=== PATIENT | female | born 1995 | race Caucasian/White ===

== ENCOUNTER 2022-10-31 15:28 | Outpatient (AMB) | payer OTHER, SELFPAY ==
--- NOTE | 2022-10-31 15:37 | A.OFFPC_ITS ---
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 Accompanied by: Self / Same As Patient Allergies No Known Allergies [No Known Allergies*] Allergy (Verified 10/31/22 15:47) Medication List - Last Reconciled 10/31/22 by MARGARET Romeo dextroamphetamine-amphetamine 10 mg ER (Adderall XR) 10 mg PO DAILY dextroamphetamine-amphetamine 25 mg ER 1 cap PO DAILY 30 days simvastatin 10 mg PO BEDTIME 90 days Tobacco use date assessed: 10/31/22 Dental Screening Dental Screen Date: 10/31/22 Did you have a dental visit in the last 12 months?: No Did you have a dental problem in the last 6 months where you did not have access to dental care?: No Was dental information given to patient?: Patient has dentist HPI Med review HPI Details Patient is a 26-year-old female presents today for medications refills. Patient of Dr. Gee, last office visit 12/2021. Medical history significant for ADHD, hypercholesterolemia, obesity. Patient reports healthy food choices and exercise as tolerated. She reports fatigue for the past 1 year, she was encouraged to complete her blood work. No shortness of breath or chest pain. Reports ADHD stable with Adderall 25 mg in the morning and 10 mg in the afternoon, she reports being on Adderall for many years now which helping her - denies side effects. [facility] Medical History ADHD Hypercholesterolemia Surgical History No pertinent past surgical history Family History Father Myocardial infarction Mother No problems noted. Maternal Grandmother Lung cancer Maternal Grandmother Melanoma Skin cancer Sister Chest pain Family/Other Diabetes Heart disease Paternal Grandmother Myocardial infarction Maternal Uncle Schizophrenia Social History Housing: Other Alcohol intake: current Alcohol intake frequency: a few times a week Patient Tobacco Use Status: Never used Tobacco e-Cigarette/Vaping Use: Never Used Second Hand Smoke Exposure: No Current occupational status: employed Cognitive needs: No Hearing needs: No Vision needs: No Questionnaire PHQ-9 Over the last 2 weeks, how often have you been bothered by any of the following problems? 1. Little interest or pleasure in doing things: several days 2. Feeling down, depressed, or hopeless: several days 3. Trouble falling or staying asleep, or sleeping too much: not at all 4. Feeling tired or having little energy: not at all 5. Poor appetite or overeating: not at all 6. Feeling bad about yourself - or that you are a failure or have let yourself or your family down: not at all 7. Trouble concentrating on things, such as reading the newspaper or watching television: not at all 8. Moving or speaking so slowly that other people could have noticed. Or the opposite - being so fidgety or restless that you have been moving around a lot more than usual: not at all 9. Thoughts that you would be better off or of hurting yourself in some way: not at all Total score: 2 Depression Screening Interpretation: Negative 16533 - PHQ-9 Billing: Yes Source: Developed by Drs. David Dowd, Becca Schaefer, Tom Steel and colleagues, with an educational martin from [employer]. Thrive Questionnaire Date Thrive assessed: 10/31/22 I am a: Patient What is your living situation today?: I have a steady place to live Within the past 12 months, did the food you bought not last and you didn't have the money to get more?: Never true Within the past 12 months, did you worry whether your food would run out before you got money to buy more?: Never true Do you have trouble paying for medicines?: No Do you have trouble getting transportation to medical appointments?: No Do you have trouble paying your heating and electricity bill?: No Do you have trouble taking care of your child, family member or friend?: No Do you have trouble with day-to-day activities such as bathing, preparing meals, shopping, managing finances, etc.?: No Are you currently unemployed and looking for a job?: No Are you interested in more education?: No Please select the resources that you would like help with: None Currently or been in a relationship where the following occur: no concerns reported AUDIT C Alcohol Use Questionnaire (AUDIT-C) 1. How often do you have a drink containing alcohol?: 2-3 times a week 2. How many drinks containing alcohol do you have on a typical day when you are drinking?: 1 or 2 Total Score: 3 Score Reviewed/Action Taken: No MICHAEL-7 AMB Questionnaire MICHAEL-7 Date MICHAEL - 7 assessed: 10/31/22 Feeling nervous, anxious, or on edge: 1 = Several days Not being able to stop or control worryin = Several days Worrying too much about different things: 1 = Several days Trouble relaxin = Several days Being so restless that it is hard to sit still: 1 = Several days Becoming easily annoyed or irritable: 1 = Several days Feeling afraid as if something awful might happen: 1 = Several days Total MICHAEL-7 score (0-4 normal; 5-9 mild; 10-14 moderate; 15-21 severe): 7 Source: Developed by Drs. David Dowd, Becca Schaefer, Tom Steel and colleagues, with an educational martin from [employer]. MICHAEL-7 Assessment Billing MICHAEL-7 Assessment Tool: MICHAEL-7 Assessment 21115 Review of Systems Const Denies body aches, Denies chills, Reports fatigue, Denies fever(s) and Denies headache(s) Eyes Denies change in vision ENT Denies dizziness, Denies otalgia, Denies headache(s), Denies nasal discharge, Denies sinus pain and Denies sore throat Card Denies chest pain, Denies edema, Denies lightheadedness and Denies dyspnea Resp Denies cough and Denies dyspnea GI Denies constipation, Denies diarrhea, Denies nausea and Denies vomiting Denies dysuria Musc Denies myalgias Skin/Breast Denies rash Neuro Denies dizziness and Denies headache(s) Endo Reports fatigue Physical exam (Primary Care) Vital Signs: Last Vital Signs Pulse 93 10/31/22 15:38 BP 122/80 10/31/22 15:38 Pulse Ox 97 10/31/22 15:38 Oxygen Delivery Method Room Air 10/31/22 15:38 BMI result Body Mass Index 35.8 Tobacco/Smoking Status: Tobacco use Status Tobacco use date assessed 10/31/22 10/31/22 15:43 Patient Tobacco Use Status Never used Tobacco 10/31/22 15:43 e-Cigarette/Vaping Use Never Used 10/31/22 15:43 PHQ-9: PHQ-9 Score PHQ-9: Total score 2 10/31/22 15:49 Depression Screening Interpretation: Negative Thrive Assessment: Date of Thrive Assessment Date Thrive assessed 10/31/22 10/31/22 15:43 Currently or been in a relationship where the following occur: no concerns reported Const General: cooperative and no acute distress Orientation/consciousness: patient oriented x3 HENMT Head: Yes normocephalic and Yes atraumatic Mouth: oropharynx normal and moist mucous membranes Throat: Yes posterior oropharynx normal Eyes General: appearance normal, both eyes and all related structures Pupils: Equal, round and reactive pupils present Neck Neck: Yes normal visual inspection, Yes full ROM and Yes no lymphadenopathy Resp Effort & Inspection: normal respiratory effort and able to speak in complete sentences Auscultation: clear to auscultation bilaterally, no crackles, no rales, no rhonchi and no wheezes Cardio Rate: regular rate Rhythm: regular rhythm Heart sounds: S1 normal heart sound present and S2 normal heart sound present GI Auscultation: normal bowel sounds Skin General skin exam: no rashes or lesions noted Neuro General: patient oriented x3 Cranial nerves: Yes Equal, round and reactive pupils present Gait exam (Neuro): Normal gait present Extrem General: Yes full ROM and No edema Assessment and Plan Assessment & Plan (1) Hypercholesterolemia: Code(s): E78.00 - Pure hypercholesterolemia, unspecified Plan: Patient was encouraged to complete her blood work Continue simvastatin Low-cholesterol diet and weight loss (2) ADHD: Comment: 20 min reviewing chart evaluating patient and documenting Code(s): F90.9 - Attention-deficit hyperactivity disorder, unspecified type Plan: Stable with Adderall, Rx sent - patient was educated about possible adverse effects and when to notify provider (3) Obesity (BMI 30-39.9): Code(s): E66.9 - Obesity, unspecified Plan: Healthy food choices and exercise as tolerated Plan Patient was encouraged to complete her blood work Orders: Orders Complete Blood Count Auto Diff Today F90.9 - Attention-deficit hyperactivity disorder, unspecified type Vitamin D 25-OH Total Today F90.9 - Attention-deficit hyperactivity disorder, unspecified type Medications: Refilled simvastatin 10 mg PO BEDTIME 90 days 90 tabs 2RF E78.00 - Pure hypercholesterolemia, unspecified dextroamphetamine-amphetamine 25 mg ER 1 cap PO DAILY 30 days 30 caps 0RF F90.9 - Attention-deficit hyperactivity disorder, unspecified type dextroamphetamine-amphetamine 10 mg ER (Adderall XR) 10 mg PO DAILY 30 caps 0RF F90.9 - Attention-deficit hyperactivity disorder, unspecified type dextroamphetamine-amphetamine 25 mg ER 1 cap PO DAILY 30 days 30 caps 0RF F90.9 - Attention-deficit hyperactivity disorder, unspecified type Coding Level of Care Code Est Pt Level 4 (82829) Diagnoses Hypercholesterolemia E78.00 ADHD F90.9 Obesity (BMI 30-39.9) E66.9 Additional Codes MICHAEL-7 Assessment Billing - MICHAEL-7 Assessment Tool: MICHAEL-7 Assessment 84314 ([id number])
[2022-10-31 15:38] VITALS: BP 122/80; PULSE 93; O2SAT 97; BMI 35.8
== END 2022-10-31 17:42 | disposition home or self-care (01) ==
PROVIDERS: PCP Internal Medicine; Visit Provider Nurse Practitioner Family
DX: E78.00 Pure hypercholesterolemia, unspecified (principal); F90.9 Attention-deficit hyperactivity disorder, unspecified type; E66.9 Obesity, unspecified; Z68.35 Body mass index [BMI] 35.0-35.9, adult
CPT/HCPCS: 99214

== ENCOUNTER 2023-02-28 10:28 | Outpatient (REF) | payer OTHER, SELFPAY ==
[2023-02-28 10:53] LABS: MANUAL DIFF FLAG NO
[2023-02-28 11:45] LABS: Estimated Average Glucose 120 mg/dL; Hemoglobin A1c % 5.8 % (<6.0)
[2023-02-28 11:48] LABS: Basophils Percent Auto 0.4 % (0-2); Eosinophils Absolute Auto 0.2 X10*3/uL (0.0-0.4); Eosinophils Percent Auto 2.3 % (0-4); Hematocrit 41.2 % (37.0-47.0); Imm Gran Abs Auto 0.05 X10*3/uL (0.00-0.03); Imm Gran Pct Auto 0.6 % (0.0-0.4); Lymphocytes Absolute Auto 1.9 X10*3/uL (1.2-4.9); Lymphocytes Percent Auto 22.6 % (20-40); Mean Corpuscular Volume 91.2 fL (80.0-98.0); Mean Platelet Volume 9.8 fL (9.4-12.3); Monocytes Absolute Auto 0.5 X10*3/uL (0.1-1.2); Monocytes Percent Auto 6.5 % (2-11); Neutrophils Absolute Auto 5.7 x10*3/uL (2.0-8.3); Neutrophils Percent Auto 67.6 % (45-73); Platelet Count 306 X10*3/uL (160-400); Red Blood Count 4.52 X10*6/uL (4.20-5.50); Red Cell Distribution Width 11.9 % (11.0-16.0); White Blood Count 8.4 X10*3/uL (4.8-10.8)
[2023-02-28 12:16] LABS: Glucose Fasting 91 mg/dL (60-99)
[2023-02-28 12:26] LABS: Vitamin D 25-OH Total 24.5 ng/mL (>30)
[2023-02-28 12:28] LABS: Alanine Aminotransferase 39 U/L (0-31); Albumin Level 4.5 g/dL (3.5-5.0); Alkaline Phosphatase 129 U/L (39-117); Anion Gap 13 (12-20); Aspartate Amino Transferase 29 U/L (5-31); Bilirubin Total 0.4 mg/dL (0.0-1.0); Blood Urea Nitrogen 13 mg/dL (9-16); Calcium 9.9 mg/dL (8.4-10.2); Carbon Dioxide 22 mmol/L (22-29); Chloride 107 mmol/L (96-108); Cholesterol 258 mg/dL (<200); Estimated Glomerular Filt Rate > 60; Glucose Random 93 mg/dL (60-115); HDL Cholesterol 42 mg/dL (>40); Insulin 13 uU/mL (2-29); LDL Cholesterol Calculated 169 mg/dL (<100); Potassium 4.1 mmol/L (3.3-5.1); Sodium 138 mmol/L (135-145); TSH reflex Free T4 2.12 uIU/mL (0.32-4.0); Total Protein 7.6 g/dL (6.5-8.0); Triglycerides 238 mg/dL (<150)
[2023-02-28 12:31] LABS: Free T4 (Free Thyroxine) 0.99 ng/dL (0.71-1.85)
[2023-03-01 06:44] LABS: DHEA Sulfate 326 mcg/dL (14-349); Follicle Stimulating Hormone 6.4 mIU/mL
[2023-03-04 23:29] LABS: Testosterone, Free 7.5 pg/mL (0.1-6.4); Testosterone, Total 47 ng/dL (2-45)
[2023-03-05 22:19] LABS: Estradiol Ultra Sensitive 37 pg/mL
== END 2023-02-28 10:29 | disposition home or self-care (01) ==
LOC: HO.LAB 10:28
PROVIDERS: Nurse Practitioner Family; PCP Internal Medicine; Referring Provider Internal Medicine; Visit Provider Obstetrics & Gynecology
DX: E78.00 Pure hypercholesterolemia, unspecified (principal); F90.9 Attention-deficit hyperactivity disorder, unspecified type; N97.9 Female infertility, unspecified
CPT/HCPCS: 36415; 80053; 80061; 82306; 82627; 82670; 82947; 83001; 83036; 83525; 84146; 84402; 84403; 84439; 84443; 85025

== ENCOUNTER 2023-05-02 13:10 | Outpatient (AMB) | payer OTHER, SELFPAY ==
[2023-05-02 13:14] VITALS: BP 142/96; PULSE 94; O2SAT 97; BMI 35.8
--- NOTE | 2023-05-02 13:14 | A.OFFPC_ITS ---
Vital Signs 05/02/23 13:14 Height 5 ft 2.5 in Weight 199 lb 2 oz BMI 35.8 BP 142/96 H Blood Pressure Location Lt brachial Position Sitting Pulse 94 Pulse Source Pulse Oximeter Pulse Oximetry (%) 97 Oxygen Delivery Method Room Air Intake Visit Reasons: Annual PE Intake Note: Patient is here today for a physical. 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 Accompanied by: Self / Same As Patient Allergies No Known Allergies [No Known Allergies*] Allergy (Verified 05/02/23 13:15) Medication List - Last Reconciled 05/02/23 by Diallo Gee MD cholecalciferol (vitamin D3) 25 mcg PO DAILY dextroamphetamine-amphetamine 10 mg ER (Adderall XR) 10 mg PO DAILY multivitamin 1 tab PO DAILY Tobacco use date assessed: 05/02/23 Dental Screening Dental Screen Date: 05/02/23 Did you have a dental visit in the last 12 months?: Yes Did you have a dental problem in the last 6 months where you did not have access to dental care?: No Was dental information given to patient?: Patient has dentist HPI Annual PE HPI Details 27-year-old obese female with a history of ADHD hypercholesterolemia last seen in 2021 coming in for physical exam. Review of the notes patient has seen the nurse practitioner in October 2022 for a med review patient has Adderall 25 mg in the morning and 10 mg in the afternoon. [facility] Medical History (Updated 05/02/23 @ 13:36 by Diallo Gee MD) GERD (gastroesophageal reflux disease) Obesity (BMI 30.0-34.9) Hypercholesterolemia ADHD Surgical History No pertinent past surgical history Family History (Updated 05/02/23 @ 13:28 by Diallo Gee MD) Father Myocardial infarction Mother No problems noted. Maternal Grandmother Lung cancer Maternal Grandmother Melanoma Skin cancer Sister Chest pain Family/Other Diabetes Heart disease Paternal Grandmother Myocardial infarction Maternal Uncle Schizophrenia Paternal Aunt Pericardial effusion Social History (Updated 05/02/23 @ 13:29 by Diallo Gee MD) Housing: Other Alcohol intake: current Alcohol intake frequency: a few times a week Comment: 2x a week 3-4 glasses of wine Patient Tobacco Use Status: Never used Tobacco e-Cigarette/Vaping Use: Never Used Second Hand Smoke Exposure: No Current occupational status: employed Cognitive needs: No Hearing needs: No Vision needs: No Questionnaire PHQ-9 Over the last 2 weeks, how often have you been bothered by any of the following problems? 1. Little interest or pleasure in doing things: not at all 2. Feeling down, depressed, or hopeless: not at all 3. Trouble falling or staying asleep, or sleeping too much: not at all 4. Feeling tired or having little energy: not at all 5. Poor appetite or overeating: not at all 6. Feeling bad about yourself - or that you are a failure or have let yourself or your family down: not at all 7. Trouble concentrating on things, such as reading the newspaper or watching television: not at all 8. Moving or speaking so slowly that other people could have noticed. Or the opposite - being so fidgety or restless that you have been moving around a lot more than usual: not at all 9. Thoughts that you would be better off or of hurting yourself in some way: not at all Total score: 0 Depression Screening Interpretation: Negative Depression Screening Done: Yes 98127 - PHQ-9 Billing: Yes Source: Developed by Drs. David Dowd, Becca Schaefer, Tom Steel and colleagues, with an educational martin from [employer]. Thrive Questionnaire Date Thrive assessed: 05/02/23 I am a: Patient What is your living situation today?: I have a steady place to live Within the past 12 months, did the food you bought not last and you didn't have the money to get more?: Never true Within the past 12 months, did you worry whether your food would run out before you got money to buy more?: Never true Do you have trouble paying for medicines?: No Do you have trouble getting transportation to medical appointments?: No Do you have trouble paying your heating and electricity bill?: No Do you have trouble taking care of your child, family member or friend?: No Do you have trouble with day-to-day activities such as bathing, preparing meals, shopping, managing finances, etc.?: No Are you currently unemployed and looking for a job?: No Are you interested in more education?: No Please select the resources that you would like help with: None Currently or been in a relationship where the following occur: no concerns reported THRIVE Score: 0 AUDIT C Alcohol Use Questionnaire (AUDIT-C) 1. How often do you have a drink containing alcohol?: 2-3 times a week 2. How many drinks containing alcohol do you have on a typical day when you are drinking?: 1 or 2 Total Score: 3 Score Reviewed/Action Taken: No MICHAEL-7 AMB Questionnaire MICHAEL-7 Date MICHAEL - 7 assessed: 05/02/23 Feeling nervous, anxious, or on edge: 0 = Not at all Not being able to stop or control worryin = Not at all Worrying too much about different things: 0 = Not at all Trouble relaxin = Not at all Being so restless that it is hard to sit still: 0 = Not at all Becoming easily annoyed or irritable: 0 = Not at all Feeling afraid as if something awful might happen: 0 = Not at all Total MICHAEL-7 score (0-4 normal; 5-9 mild; 10-14 moderate; 15-21 severe): 0 Source: Developed by Drs. David Dowd, Becca Schaefer, Tom Steel and colleagues, with an educational martin from [employer]. MICHAEL-7 Assessment Billing MICHAEL-7 Assessment Tool: MICHAEL-7 Assessment 80448 Review of Systems Const Denies poor appetite and Denies weakness Eyes Denies no additional complaints ENT Reports Normal hearing present, Denies dizziness, Denies nasal congestion, Denies tinnitus and Denies sore throat Card Denies chest pain, Denies syncope, Denies rapid heart rate and Denies dyspnea Resp Denies cough and Denies dyspnea GI Denies change in stool character, Reports constipation, Denies diarrhea, Denies nausea and Denies vomiting Denies urinary frequency, Denies difficulty voiding and Denies dysuria Neuro Reports Normal hearing present, Denies confusion, Denies dizziness, Denies syncope and Denies weakness Psych Denies confusion Physical exam (Primary Care) Vital Signs: Last Vital Signs Pulse 94 05/02/23 13:14 BP 142/96 H 05/02/23 13:14 Pulse Ox 97 05/02/23 13:14 Oxygen Delivery Method Room Air 05/02/23 13:14 BMI result Body Mass Index 35.8 Tobacco/Smoking Status: Tobacco use Status Tobacco use date assessed 05/02/23 05/02/23 13:17 Patient Tobacco Use Status Never used Tobacco 05/02/23 13:17 e-Cigarette/Vaping Use Never Used 05/02/23 13:17 Depression Screening Interpretation: Negative Thrive Assessment: Date of Thrive Assessment Date Thrive assessed 05/02/23 05/02/23 13:17 Currently or been in a relationship where the following occur: no concerns reported Const General: No confusion Orientation/consciousness: No confusion Neuro General: No confusion Cranial nerves: Yes Normal hearing present Assessment and Plan Assessment & Plan (1) Annual physical exam: Code(s): Z00.00 - Encounter for general adult medical examination without abnormal findings (2) Obesity (BMI 30-39.9): Code(s): E66.9 - Obesity, unspecified Plan: Diet and exercise (3) Hypercholesterolemia: Code(s): E78.00 - Pure hypercholesterolemia, unspecified Plan: Avoid fried foods, chicken skin, eggs, butter margarine, pastries and meat. Be it pork or beef they have a lot of cholesterol LDL goal of less than 130 and triglyceride of less than 150. Due to patient's desire for will hold off for any cholesterol medication (4) ADHD: Comment: 20 min reviewing chart evaluating patient and documenting Code(s): F90.9 - Attention-deficit hyperactivity disorder, unspecified type Plan: Presently continuing with medication for ADHD blood pressure controlled (5) Impaired glucose tolerance: Code(s): R73.02 - Impaired glucose tolerance (oral) Plan: Decrease the amount of carbohydrate intake, pasta, bread, rice and potatoes are all sugar and that is aside from all the sweet stuff, remember that fruits are good but they are Sweet also. (6) LFT elevation: Code(s): R79.89 - Other specified abnormal findings of blood chemistry Plan: Will request for ultrasound and repeat blood work for hepatitis profile (7) GERD (gastroesophageal reflux disease): Code(s): K21.9 - Gastro-esophageal reflux disease without esophagitis Plan: Avoid the foods that causes that usually spicy foods, tomato products, juices, coffee, soda and foods that your sensitive to. After eating do not lie down, allow 3-4 hours before in lie down. And keep the head of bed above 30 degrees to avoid the acid from going up. (8) Blood pressure elevated without history of HTN: Code(s): R03.0 - Elevated blood-pressure reading, without diagnosis of hypertension Plan: Advised to monitor blood pressure at home and record. Before taking the blood pressure sit down for about 3-5 minutes. Orders: Orders Hepatitis B,C Profile Today R79.89 - Other specified abnormal findings of blood chemistry Comprehensive Met. Panel Today R79.89 - Other specified abnormal findings of blood chemistry US abdomen complete Today R79.89 - Other specified abnormal findings of blood chemistry Coding Level of Care Code Est Pt Prev Care 18-39y(32152) Diagnoses Annual physical exam Z00.00 Obesity (BMI 30-39.9) E66.9 Hypercholesterolemia E78.00 ADHD F90.9 Impaired glucose tolerance R73.02 LFT elevation R79.89 GERD (gastroesophageal reflux disease) K21.9 Blood pressure elevated without history of HTN R03.0 Additional Codes MICHALE-7 Assessment Billing - MICHAEL-7 Assessment Tool: MICHAEL-7 Assessment [id number] ([id number])
== END 2023-05-02 13:45 | disposition home or self-care (01) ==
PROVIDERS: PCP Internal Medicine; Visit Provider Internal Medicine
DX: Z00.00 Encounter for general adult medical examination without abnormal findings (principal); E66.9 Obesity, unspecified; E78.00 Pure hypercholesterolemia, unspecified; Z68.35 Body mass index [BMI] 35.0-35.9, adult; F90.9 Attention-deficit hyperactivity disorder, unspecified type; R73.02 Impaired glucose tolerance (oral); R79.89 Other specified abnormal findings of blood chemistry; K21.9 Gastro-esophageal reflux disease without esophagitis; R03.0 Elevated blood-pressure reading, without diagnosis of hypertension
CPT/HCPCS: 99395